=== PATIENT | female | born 1990 | race Caucasian/White ===

== ENCOUNTER 2018-02-16 09:35 | Inpatient (IN) ==
--- NOTE | 2018-02-16 10:26 | Emergency Department Note ---
Disposition Clinical Impression: Suicidal ideation, Hallucination Disposition: Admitted As Inpatient Condition: Good General Adult HPI - General Stated complaint: SI Time Seen by Provider: 02/16/18 10:23 - History of Present Illness HPI Narrative: Patient presents with suicidal ideation and auditory hallucinations. Voices tell her that they hate her, that the people in her house. Her, and that she should under life. She says that she currently does want to . Has a plan to overdose. Has had these feelings before and has attempted suicide in the past. She is a substance abuser who has been clean for the last 30 days, has used heroin, Suboxone and other drugs. No family history of suicide. Not currently employed. Denies any physical complaints of fever, nausea, pain or any other medical issue. Patient presents during a mask T event, being treated in the triage area at this point is whether receiving somewhere between 40 and 100 patients from a [facility]. There is a sitter in the room with her. [place] slip has been signed. - Related Data Home Medications Medication Instructions Recorded Confirmed Aripiprazole [Abilify] 5 mg PO DAILY 02/17/18 02/17/18 Cholecalciferol (D-3) [Vitamin D] 1,000 unit PO DAILY 02/17/18 02/17/18 HydrOXYzine Pamoate [Vistaril] 50 - 100 mg PO HS PRN 02/17/18 02/17/18 Previous Rx's Medication Instructions Recorded Mirtazapine [Remeron] 15 mg PO HS tablet 02/19/18 lamoTRIgine [Lamictal] 25 mg PO BID #60 tablet 02/19/18 risperiDONE [RisperDAL] 1 mg PO BID #60 tablet 02/19/18 traZODone [TraZODone] 100 mg PO HS tablet 02/19/18 Allergies Allergy/AdvReac Type Severity Reaction Status Date / Time methylergonovine Allergy Seizure Verified 12/08/17 15:18 [From Methergine] All systems ED: reviewed and negative except as stated. 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 General: Well-developed, well-nourished patient sitting up in bed who appears non-toxic. Head: Atraumatic, normocephalic. Eyes: Sclera anicteric. ENT: Mucous membranes moist. Respiratory: Normal respiratory pattern without respiratory distress. Skin: Warm and dry, no appreciable rash. Neurological: Awake and alert with normal speech, gait and mental status. No focal deficits or lateralizing signs. Psychiatric: Makes good eye contact, answers questions appropriately. Seems calm. Course Vital Signs Temperature 97.8 F 02/16/18 11:48 Pulse Rate 82 02/16/18 11:48 Respiratory Rate 18 02/16/18 11:48 Blood Pressure 115/83 02/16/18 11:48 O2 Sat by Pulse Oximetry 99 02/16/18 11:48 Temperature 98.1 F 02/19/18 09:00 Pulse Rate 81 02/19/18 09:00 Respiratory Rate 16 02/19/18 09:00 Blood Pressure 105/71 02/19/18 09:00 O2 Sat by Pulse Oximetry 97 02/16/18 22:29 Oxygen Delivery Oxygen Delivery Room Air Medical Decision Making - MDM Narrative Medical decision making narrative: [place] slip has been signed. Patient will require inpatient psychiatric admission. Patient checked out to Dr. Buffy Hui at change shift with evaluation by the psychiatric team pending. - Lab Data Result diagrams: 02/16/18 11:42 02/16/18 11:42 Lab Results 02/16/18 02/16/18 02/16/18 Range/Units 11:21 11:21 11:42 WBC 6.1 (4.3-11.1) K/mcL RBC 4.19 (3.82-4.97) M/mcL Hgb 13.0 (11.5-15.4) g/dL Hct 38.6 (35.3-44.9) % MCV 92.1 (83.0-100.0) fL MCH 31.0 (28.0-33.3) pg MCHC 33.7 (31.6-35.5) g/dL RDW 13.1 (11.5-14.5) % Plt Count 214 (140-400) K/mcL MPV 9.9 (9.4-12.4) fL Immature Gran % 0.3 (0-4) % Seg Neutrophils % 58.7 % Lymphocytes % 29.7 % Monocytes % 8.8 % Eosinophils % 1.5 % Basophils % 1.0 % Neutrophils # 3.6 (1.6-8.9) K/mcL Lymphocytes # 1.8 (0.6-4.6) K/mcL Monocytes # 0.5 (0.0-1.3) K/mcL Eosinophils # 0.1 (0.0-0.6) K/mcL Basophils # 0.1 (0.0-0.2) K/mcL Sodium (136-145) mEq/L Potassium (3.5-5.1) mEq/L Chloride (98-107) mEq/L Carbon Dioxide (23-29) mEq/L BUN (6-20) mg/dL Creatinine (0.60-1.20) mg/dL Est GFR ( Amer) (> 60) Est GFR (Non-Af Amer) (> 60) BUN/Creatinine Ratio (6-26) Glucose (70-105) mg/dL Calculated Osmolality (280-300) Calcium (8.6-10.3) mg/dL Serum , Qual (Negative) Urine Color Yellow (Yellow) Urine Clarity Clear (Clear) Urine pH 6.5 (5.0-8.0) pH Units Ur Specific [place] 1.021 (1.010-1.025) Urine Protein Negative (Neg-Trace) mg/dL Urine Glucose (UA) Normal (Normal) mg/dL Urine Ketones Negative (Negative) mg/dL Urine Blood Negative (Negative) Urine Nitrite Negative (Negative) Urine Bilirubin Negative (Negative) Urine Urobilinogen Normal (Normal) mg/dL Ur Leukocyte Esterase Negative (Negative) Salicylates (15.0-30.0) mg/dL Urine Opiates Screen Negative (Qfbukr=758) ng/mL Acetaminophen (10-20) mcg/mL Ur Barbiturates Screen Negative (Uepioh=888) ng/mL Ur Phencyclidine Scrn Negative (Cutoff=25) ng/mL Ur Amphetamines Screen Negative (Nnagqr=3647) ng/mL U Benzodiazepines Scrn Negative (Omyebl=173) ng/mL Urine Cocaine Screen Negative (Cutoff= 300) ng/mL U Marijuana (THC) Screen Negative (Cutoff = 50) ng/mL Ur Drug Screen Interp See Below Ethyl Alcohol (Less than 10) mg/dL 02/16/18 02/16/18 Range/Units 11:42 11:42 WBC (4.3-11.1) K/mcL RBC (3.82-4.97) M/mcL Hgb (11.5-15.4) g/dL Hct (35.3-44.9) % MCV (83.0-100.0) fL MCH (28.0-33.3) pg MCHC (31.6-35.5) g/dL RDW (11.5-14.5) % Plt Count (140-400) K/mcL MPV (9.4-12.4) fL Immature Gran % (0-4) % Seg Neutrophils % % Lymphocytes % % Monocytes % % Eosinophils % % Basophils % % Neutrophils # (1.6-8.9) K/mcL Lymphocytes # (0.6-4.6) K/mcL Monocytes # (0.0-1.3) K/mcL Eosinophils # (0.0-0.6) K/mcL Basophils # (0.0-0.2) K/mcL Sodium 140 (136-145) mEq/L Potassium 4.5 (3.5-5.1) mEq/L Chloride 107 (98-107) mEq/L Carbon Dioxide 28 (23-29) mEq/L BUN 14 (6-20) mg/dL Creatinine 0.86 (0.60-1.20) mg/dL Est GFR ( Amer) > 60 (> 60) Est GFR (Non-Af Amer) > 60 (> 60) BUN/Creatinine Ratio 16 (6-26) Glucose 92 (70-105) mg/dL Calculated Osmolality 290 (280-300) Calcium 9.3 (8.6-10.3) mg/dL Serum , Qual Negative (Negative) Urine Color (Yellow) Urine Clarity (Clear) Urine pH (5.0-8.0) pH Units Ur Specific [place] (1.010-1.025) Urine Protein (Neg-Trace) mg/dL Urine Glucose (UA) (Normal) mg/dL Urine Ketones (Negative) mg/dL Urine Blood (Negative) Urine Nitrite (Negative) Urine Bilirubin (Negative) Urine Urobilinogen (Normal) mg/dL Ur Leukocyte Esterase (Negative) Salicylates < 2.5 L (15.0-30.0) mg/dL Urine Opiates Screen (Nfqqrv=573) ng/mL Acetaminophen < 10 L (10-20) mcg/mL Ur Barbiturates Screen (Ilrzwa=158) ng/mL Ur Phencyclidine Scrn (Cutoff=25) ng/mL Ur Amphetamines Screen (Ksqfyd=6886) ng/mL U Benzodiazepines Scrn (Pcujpk=944) ng/mL Urine Cocaine Screen (Cutoff= 300) ng/mL U Marijuana (THC) Screen (Cutoff = 50) ng/mL Ur Drug Screen Interp Ethyl Alcohol 12 H (Less than 10) mg/dL
[2018-02-16 11:25] LABS: Bilirubin,Urine Negative (Negative); Blood,Urine Negative (Negative); Clarity,Urine Clear (Clear); Color,Urine Yellow (Yellow); Glucose,Urine (UA) Normal (Normal); Ketones,Urine Negative (Negative); Leukocyte Esterase,Urine Negative (Negative); Nitrite,Urine Negative (Negative); PH,Urine 6.5 pH Units (5.0-8.0); Protein,Urine Negative (Neg-Trace); Specific Gravity,Urine 1.021 (1.010-1.025); Urobilinogen,Urine Normal (Normal)
[2018-02-16 11:29] LABS: Amphetamine Screen,Urine Negative ng/mL (Cutoff=1000); Barbiturate Screen,Urine Negative ng/mL (Cutoff=200)
[2018-02-16 11:30] LABS: Benzodiazepines Screen,Urine Negative ng/mL (Cutoff=300); Cannabinoid Screen,Urine Negative ng/mL (Cutoff = 50); Cocaine Screen,Urine Negative ng/mL (Cutoff= 300); Opiate Screen,Urine Negative ng/mL (Cutoff=300); Phencyclidine Screen,Urine Negative ng/mL (Cutoff=25)
[2018-02-16 12:13] LABS: Basophils # 0.1 K/mcL (0.0-0.2); Eosinophils # 0.1 K/mcL (0.0-0.6); Eosinophils % 1.5 %; Hematocrit 38.6 % (35.3-44.9); Immature Granulocytes % 0.3 % (0-4); Lymphocytes # 1.8 K/mcL (0.6-4.6); Lymphocytes % 29.7 %; Mean Corpuscular HGB Conc 33.7 g/dL (31.6-35.5); Mean Corpuscular Volume 92.1 fL (83.0-100.0); Mean Platelet Volume 9.9 fL (9.4-12.4); Monocytes # 0.5 K/mcL (0.0-1.3); Monocytes % 8.8 %; Neutrophils # 3.6 K/mcL (1.6-8.9); Platelet Count 214 K/mcL (140-400); Red Blood Count 4.19 M/mcL (3.82-4.97); Red Cell Distribution Width 13.1 % (11.5-14.5); Segmented Neutrophils % 58.7 %
[2018-02-16 12:22] LABS: Acetaminophen < 10 mcg/mL (10-20); BUN/Creatinine Ratio 16 (6-26); Blood Urea Nitrogen 14 mg/dL (6-20); Calcium 9.3 mg/dL (8.6-10.3); Carbon Dioxide 28 mEq/L (23-29); Chloride 107 mEq/L (98-107); Ethanol 12 mg/dL (Less than 10); Glucose 92 mg/dL (70-105); Osmolality,Calculated 290 (280-300); Potassium 4.5 mEq/L (3.5-5.1); Salicylate < 2.5 mg/dL (15.0-30.0); Sodium 140 mEq/L (136-145); eGFR For Non-African Americans > 60 (> 60)
--- NOTE | 2018-02-16 13:54 | Emergency Department Note ---
Disposition Clinical Impression: Suicidal ideation Disposition: Still a Patient Referrals: NONE,PCP [Primary Care Provider] - General Adult HPI - General Chief complaint: ED Psychiatric Symptoms Stated complaint: SI Time Seen by Provider: 02/16/18 10:23 Source: patient, family Limitations: no limitations - History of Present Illness Pain Scale: 0 - Related Data Home Medications Medication Instructions Recorded Confirmed Trazodone HCl 100 mg PO HS 01/04/18 01/04/18 Previous Rx's Medication Instructions Recorded ARIPiprazole [Abilify] 10 mg PO DAILY #60 tablet 01/07/18 Mirtazapine [Remeron] 15 mg PO HS #30 tablet 01/07/18 Allergies Allergy/AdvReac Type Severity Reaction Status Date / Time methylergonovine Allergy Seizure Verified 12/08/17 15:18 [From Methergine] Past Medical History - Past Medical History Medical history: Reports: no medical history Psychiatric history: Reports: anxiety, bipolar, depression, prior suicide attempt, schizophrenia [employer]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 Akbar. This is a 27 year old female who has SI with plans to overdose. She has been medically cleared and the pysch hold has been placed and she is awaiting 1a evaluation Vital Signs Temperature 97.8 F 02/16/18 11:48 Pulse Rate 82 02/16/18 11:48 Respiratory Rate 18 02/16/18 11:48 Blood Pressure 115/83 02/16/18 11:48 O2 Sat by Pulse Oximetry 99 02/16/18 11:48 Temperature 97.8 F 02/16/18 11:48 Pulse Rate 82 02/16/18 11:48 Respiratory Rate 18 02/16/18 11:48 Blood Pressure 115/83 02/16/18 11:48 O2 Sat by Pulse Oximetry 99 02/16/18 11:48 Oxygen Delivery Oxygen Delivery Room Air Medical Decision Making - Lab Data Result diagrams: 02/16/18 11:42 02/16/18 11:42 Lab Results 02/16/18 02/16/18 02/16/18 Range/Units 11:21 11:21 11:42 WBC 6.1 (4.3-11.1) K/mcL RBC 4.19 (3.82-4.97) M/mcL Hgb 13.0 (11.5-15.4) g/dL Hct 38.6 (35.3-44.9) % MCV 92.1 (83.0-100.0) fL MCH 31.0 (28.0-33.3) pg MCHC 33.7 (31.6-35.5) g/dL RDW 13.1 (11.5-14.5) % Plt Count 214 (140-400) K/mcL MPV 9.9 (9.4-12.4) fL Immature Gran % 0.3 (0-4) % Seg Neutrophils % 58.7 % Lymphocytes % 29.7 % Monocytes % 8.8 % Eosinophils % 1.5 % Basophils % 1.0 % Neutrophils # 3.6 (1.6-8.9) K/mcL Lymphocytes # 1.8 (0.6-4.6) K/mcL Monocytes # 0.5 (0.0-1.3) K/mcL Eosinophils # 0.1 (0.0-0.6) K/mcL Basophils # 0.1 (0.0-0.2) K/mcL Sodium (136-145) mEq/L Potassium (3.5-5.1) mEq/L Chloride (98-107) mEq/L Carbon Dioxide (23-29) mEq/L BUN (6-20) mg/dL Creatinine (0.60-1.20) mg/dL Est GFR ( Amer) (> 60) Est GFR (Non-Af Amer) (> 60) BUN/Creatinine Ratio (6-26) Glucose (70-105) mg/dL Calculated Osmolality (280-300) Calcium (8.6-10.3) mg/dL Serum , Qual (Negative) Urine Color Yellow (Yellow) Urine Clarity Clear (Clear) Urine pH 6.5 (5.0-8.0) pH Units Ur Specific [place] 1.021 (1.010-1.025) Urine Protein Negative (Neg-Trace) mg/dL Urine Glucose (UA) Normal (Normal) mg/dL Urine Ketones Negative (Negative) mg/dL Urine Blood Negative (Negative) Urine Nitrite Negative (Negative) Urine Bilirubin Negative (Negative) Urine Urobilinogen Normal (Normal) mg/dL Ur Leukocyte Esterase Negative (Negative) Salicylates (15.0-30.0) mg/dL Urine Opiates Screen Negative (Ivekoz=044) ng/mL Acetaminophen (10-20) mcg/mL Ur Barbiturates Screen Negative (Xnobuv=371) ng/mL Ur Phencyclidine Scrn Negative (Cutoff=25) ng/mL Ur Amphetamines Screen Negative (Hwyefl=5469) ng/mL U Benzodiazepines Scrn Negative (Plicuj=281) ng/mL Urine Cocaine Screen Negative (Cutoff= 300) ng/mL U Marijuana (THC) Screen Negative (Cutoff = 50) ng/mL Ur Drug Screen Interp See Below Ethyl Alcohol (Less than 10) mg/dL 02/16/18 02/16/18 Range/Units 11:42 11:42 WBC (4.3-11.1) K/mcL RBC (3.82-4.97) M/mcL Hgb (11.5-15.4) g/dL Hct (35.3-44.9) % MCV (83.0-100.0) fL MCH (28.0-33.3) pg MCHC (31.6-35.5) g/dL RDW (11.5-14.5) % Plt Count (140-400) K/mcL MPV (9.4-12.4) fL Immature Gran % (0-4) % Seg Neutrophils % % Lymphocytes % % Monocytes % % Eosinophils % % Basophils % % Neutrophils # (1.6-8.9) K/mcL Lymphocytes # (0.6-4.6) K/mcL Monocytes # (0.0-1.3) K/mcL Eosinophils # (0.0-0.6) K/mcL Basophils # (0.0-0.2) K/mcL Sodium 140 (136-145) mEq/L Potassium 4.5 (3.5-5.1) mEq/L Chloride 107 (98-107) mEq/L Carbon Dioxide 28 (23-29) mEq/L BUN 14 (6-20) mg/dL Creatinine 0.86 (0.60-1.20) mg/dL Est GFR ( Amer) > 60 (> 60) Est GFR (Non-Af Amer) > 60 (> 60) BUN/Creatinine Ratio 16 (6-26) Glucose 92 (70-105) mg/dL Calculated Osmolality 290 (280-300) Calcium 9.3 (8.6-10.3) mg/dL Serum , Qual Negative (Negative) Urine Color (Yellow) Urine Clarity (Clear) Urine pH (5.0-8.0) pH Units Ur Specific [place] (1.010-1.025) Urine Protein (Neg-Trace) mg/dL Urine Glucose (UA) (Normal) mg/dL Urine Ketones (Negative) mg/dL Urine Blood (Negative) Urine Nitrite (Negative) Urine Bilirubin (Negative) Urine Urobilinogen (Normal) mg/dL Ur Leukocyte Esterase (Negative) Salicylates < 2.5 L (15.0-30.0) mg/dL Urine Opiates Screen (Awikjn=602) ng/mL Acetaminophen < 10 L (10-20) mcg/mL Ur Barbiturates Screen (Gzzyje=935) ng/mL Ur Phencyclidine Scrn (Cutoff=25) ng/mL Ur Amphetamines Screen (Cghyxe=3911) ng/mL U Benzodiazepines Scrn (Qblklv=957) ng/mL Urine Cocaine Screen (Cutoff= 300) ng/mL U Marijuana (THC) Screen (Cutoff = 50) ng/mL Ur Drug Screen Interp Ethyl Alcohol 12 H (Less than 10) mg/dL
--- NOTE | 2018-02-16 22:14 | Emergency Department Note ---
Disposition Clinical Impression: Suicidal ideation, Hallucination Disposition: Admitted As Inpatient Condition: Good Referrals: NONE,PCP [Primary Care Provider] - Forms: ED Satisfaction Letter Time of Disposition: 22:15 General Adult HPI - General Chief complaint: ED Psychiatric Symptoms Stated complaint: SI Time Seen by Provider: 02/16/18 10:23 Source: patient, family Limitations: no limitations - History of Present Illness Pain Scale: 0 - Related Data Home Medications Medication Instructions Recorded Confirmed Trazodone HCl 100 mg PO HS 01/04/18 01/04/18 Previous Rx's Medication Instructions Recorded ARIPiprazole [Abilify] 10 mg PO DAILY #60 tablet 01/07/18 Mirtazapine [Remeron] 15 mg PO HS #30 tablet 01/07/18 Allergies Allergy/AdvReac Type Severity Reaction Status Date / Time methylergonovine Allergy Seizure Verified 12/08/17 15:18 [From Methergine] Past Medical History - Past Medical History Medical history: Reports: no medical history Psychiatric history: Reports: anxiety, bipolar, depression, prior suicide attempt, schizophrenia 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 Buffy Hui. Patient presented with suicidal ideation and auditory hallucinations. She has been medically cleared for psychiatric and at shift change is awaiting evaluation by the [address] psychiatry service. Patient was seen and evaluated by the [address] psychiatry service and is being admitted to the [address] psychiatric unit. Application for emergency admission form completed and signed by me. Vital Signs Temperature 97.8 F 02/16/18 11:48 Pulse Rate 82 02/16/18 11:48 Respiratory Rate 18 02/16/18 11:48 Blood Pressure 115/83 02/16/18 11:48 O2 Sat by Pulse Oximetry 99 02/16/18 11:48 Temperature 97.8 F 02/16/18 11:48 Pulse Rate 82 02/16/18 11:48 Respiratory Rate 18 02/16/18 11:48 Blood Pressure 115/83 02/16/18 11:48 O2 Sat by Pulse Oximetry 99 02/16/18 11:48 Oxygen Delivery Oxygen Delivery Room Air Medical Decision Making - Lab Data Result diagrams: 02/16/18 11:42 02/16/18 11:42 Lab Results 02/16/18 02/16/18 02/16/18 Range/Units 11:21 11:21 11:42 WBC 6.1 (4.3-11.1) K/mcL RBC 4.19 (3.82-4.97) M/mcL Hgb 13.0 (11.5-15.4) g/dL Hct 38.6 (35.3-44.9) % MCV 92.1 (83.0-100.0) fL MCH 31.0 (28.0-33.3) pg MCHC 33.7 (31.6-35.5) g/dL RDW 13.1 (11.5-14.5) % Plt Count 214 (140-400) K/mcL MPV 9.9 (9.4-12.4) fL Immature Gran % 0.3 (0-4) % Seg Neutrophils % 58.7 % Lymphocytes % 29.7 % Monocytes % 8.8 % Eosinophils % 1.5 % Basophils % 1.0 % Neutrophils # 3.6 (1.6-8.9) K/mcL Lymphocytes # 1.8 (0.6-4.6) K/mcL Monocytes # 0.5 (0.0-1.3) K/mcL Eosinophils # 0.1 (0.0-0.6) K/mcL Basophils # 0.1 (0.0-0.2) K/mcL Sodium (136-145) mEq/L Potassium (3.5-5.1) mEq/L Chloride (98-107) mEq/L Carbon Dioxide (23-29) mEq/L BUN (6-20) mg/dL Creatinine (0.60-1.20) mg/dL Est GFR ( Amer) (> 60) Est GFR (Non-Af Amer) (> 60) BUN/Creatinine Ratio (6-26) Glucose (70-105) mg/dL Calculated Osmolality (280-300) Calcium (8.6-10.3) mg/dL Serum , Qual (Negative) Urine Color Yellow (Yellow) Urine Clarity Clear (Clear) Urine pH 6.5 (5.0-8.0) pH Units Ur Specific [place] 1.021 (1.010-1.025) Urine Protein Negative (Neg-Trace) mg/dL Urine Glucose (UA) Normal (Normal) mg/dL Urine Ketones Negative (Negative) mg/dL Urine Blood Negative (Negative) Urine Nitrite Negative (Negative) Urine Bilirubin Negative (Negative) Urine Urobilinogen Normal (Normal) mg/dL Ur Leukocyte Esterase Negative (Negative) Salicylates (15.0-30.0) mg/dL Urine Opiates Screen Negative (Lbfbui=653) ng/mL Acetaminophen (10-20) mcg/mL Ur Barbiturates Screen Negative (Lycpxa=094) ng/mL Ur Phencyclidine Scrn Negative (Cutoff=25) ng/mL Ur Amphetamines Screen Negative (Djgzar=4068) ng/mL U Benzodiazepines Scrn Negative (Chdfop=143) ng/mL Urine Cocaine Screen Negative (Cutoff= 300) ng/mL U Marijuana (THC) Screen Negative (Cutoff = 50) ng/mL Ur Drug Screen Interp See Below Ethyl Alcohol (Less than 10) mg/dL 02/16/18 02/16/18 Range/Units 11:42 11:42 WBC (4.3-11.1) K/mcL RBC (3.82-4.97) M/mcL Hgb (11.5-15.4) g/dL Hct (35.3-44.9) % MCV (83.0-100.0) fL MCH (28.0-33.3) pg MCHC (31.6-35.5) g/dL RDW (11.5-14.5) % Plt Count (140-400) K/mcL MPV (9.4-12.4) fL Immature Gran % (0-4) % Seg Neutrophils % % Lymphocytes % % Monocytes % % Eosinophils % % Basophils % % Neutrophils # (1.6-8.9) K/mcL Lymphocytes # (0.6-4.6) K/mcL Monocytes # (0.0-1.3) K/mcL Eosinophils # (0.0-0.6) K/mcL Basophils # (0.0-0.2) K/mcL Sodium 140 (136-145) mEq/L Potassium 4.5 (3.5-5.1) mEq/L Chloride 107 (98-107) mEq/L Carbon Dioxide 28 (23-29) mEq/L BUN 14 (6-20) mg/dL Creatinine 0.86 (0.60-1.20) mg/dL Est GFR ( Amer) > 60 (> 60) Est GFR (Non-Af Amer) > 60 (> 60) BUN/Creatinine Ratio 16 (6-26) Glucose 92 (70-105) mg/dL Calculated Osmolality 290 (280-300) Calcium 9.3 (8.6-10.3) mg/dL Serum , Qual Negative (Negative) Urine Color (Yellow) Urine Clarity (Clear) Urine pH (5.0-8.0) pH Units Ur Specific [place] (1.010-1.025) Urine Protein (Neg-Trace) mg/dL Urine Glucose (UA) (Normal) mg/dL Urine Ketones (Negative) mg/dL Urine Blood (Negative) Urine Nitrite (Negative) Urine Bilirubin (Negative) Urine Urobilinogen (Normal) mg/dL Ur Leukocyte Esterase (Negative) Salicylates < 2.5 L (15.0-30.0) mg/dL Urine Opiates Screen (Qqjjsx=096) ng/mL Acetaminophen < 10 L (10-20) mcg/mL Ur Barbiturates Screen (Izzjiy=165) ng/mL Ur Phencyclidine Scrn (Cutoff=25) ng/mL Ur Amphetamines Screen (Dyiihh=1316) ng/mL U Benzodiazepines Scrn (Egedtz=200) ng/mL Urine Cocaine Screen (Cutoff= 300) ng/mL U Marijuana (THC) Screen (Cutoff = 50) ng/mL Ur Drug Screen Interp Ethyl Alcohol 12 H (Less than 10) mg/dL
[2018-02-16] MEDS ORDERED: Acetaminophen 325 MG TABLET PO PRN (22:27)
[2018-02-16] MEDS ORDERED: *HR* LORazepam 1 MG TABLET PO PRN (22:27)
[2018-02-16] MEDS ORDERED: hydrOXYzine pamoate 25 MG CAPSULE PO PRN (22:27)
[2018-02-16] MEDS ORDERED: Haloperidol Lactate 5 MG/ML VIAL IM PRN (22:27)
[2018-02-16] MEDS ORDERED: MOM Conc 10 ML UD.LIQ PO PRN (22:27)
[2018-02-16] MEDS ORDERED: Mag Hydrox/Al Hydrox/Simeth 30 ML UDC PO PRN (22:27)
[2018-02-16] MEDS ORDERED: *HR* LORazepam 2 MG/ML VIAL IM PRN (22:27)
[2018-02-16] MEDS: Mirtazapine 15 MG TABLET PO SCH (23:31)
[2018-02-16] MEDS: traZODone 50 MG TABLET PO SCH (23:31)
[2018-02-17] MEDS ORDERED: ARIPiprazole 10 MG TABLET PO SCH (09:00)
--- NOTE | 2018-02-17 16:34 | Psychiatry History & Physical ---
Date of Encounter: 02/17/18 Time of Encounter: 16:00 History of Present Illness Patient Stated Chief Complaint: I was going to take an overdose Medicare Admission Attestation: For traditional Medicare patients the provided hospital inpatient services are reasonable and necessary and in the case of services not specified as inpatient -only under 42 CFR 419.22 (n), that they are appropriately provided as inpatient services in accordance 42 CFR 412.3. For Critical Access Hospital the patient may reasonably be expected to be discharged or transferred to a hospital within 96 hours after admission to the Critical Access Hospital. Admitted From: Hospital to Hospital Transfer Plans for Post Hospital Care: Home History of Present Illness: Ms. Carey is a 27 year old female The patient is a 27-year-old white female. She is living in [facility] previously resided in [facility] Chief complaint I do not know, I have been diagnosed with so many things I had some suicidal thinking with a plan to overdose. I hear voices 24 7. History of present illness. The patient's been previously hospitalized here previously was given a diagnosis of unspecified psychosis. The patient reports that she has been hearing voices since she was young but she is never sought treatment only never became a problem until age 26. These occurred after a period of substance abuse that will be described below. The patient reports that she hears the voices of her family and these are good she hears the voices of the women in her house and these are she hears the voice of her ex-boyfriend and her ex-boyfriend's family ex-boyfriend's Hanks is her ex-boyfriend's girlfriend and these are critical they call her ugly fat or junky. They sometimes argue with her family. When asked how this is possible she said that she could not explain it but that she hears them in her head. These are intense and loud at times and never seemed to stop the do not comment on her. She had been clean for 3 months yet the voices continued. She has thought broadcasting or thought insertion thought withdrawal no ideas of reference but has delusions of passive bitty. She has no kofi or unusual delusions. The patient's been hospitalized 3 times in psychiatric units. She felt that the medicines were not helpful. At age 19 she started using heroin. This after. Pain pills the patient has been on treatment 11 times from age [age] she has worked on this. The patient' s been off Suboxone for 4 months she never been on methadone she never been on vivid trauma. She never abused alcohol she uses marijuana every day since her teenage years she never abused benzodiazepines but did abuse meth and efforts to get her off meth were not always successful. The patient reports no seizures. Past medical history. Surgery includes a D&C at age 18 she is with 2 miscarriages. Her son is now 5 years old lives with the grandmother. Patient as not practicing control but uses abstinence and barrier methods needed. Illnesses hepatitis C allergie. Or a medicine used for D&C she contracted throughout the whole body. The patient's been on Abilify Remeron and hydroxyzine Family history father with alcohol problems cleaned up and is now on Klonopin. And Lexapro. The mother had an alcohol pain pill problem and now has bipolar disorder and has used meth and has had problems with voices. Paternal cousin hung himself. Paternal grandmother by suicide Social history. The patient completed [employer] she graduated high school she attended the [employer] she got high and had trouble about. The patient worked for 4 years at a [employer] but she last worked at age 24. Her grandmother lives in [place]. The patient had to get a restraining order against the baby Mckayla but this is now. The patient has had no problems in a correctional facilities. The patient is reported in her abuse systems decreased interest worries about her health decreased energy ups and downs and weight suicidal ideation distractibility decreased need for sleep grandiosity flight of ideas excessive activities thoughtlessness no homicidal ideation. Her history is otherwise negative in the review of systems Past Med Surg Social Fam HX - Past Medical History Medical history: no medical history, hepatitis - Past Psychiatric History Psychiatric history: Reports: previous psychiatric hospitalization Family psychiatric history: Yes Family History of Suicide: Completed - Past Surgical History Surgical History: other - Social History Smoking Status: Current every day smoker Smokeless Tobacco Status: No Alcohol use: none Drug use: none Occupational status: previously employed Current living situation: [place], Other Activity Level: Independent ambulation Recent Out of Country Travel Within the Last 8 Weeks: No Exposure or Possible Exposure to Illness During Travel: No Medications & Allergies Acetaminophen [Tylenol] 500 - 1,000 mg PO Q6HR PRN 02/17/18 [History] Aripiprazole [Abilify] 5 mg PO DAILY 02/17/18 [History] Cholecalciferol (D-3) [Vitamin D] 1,000 unit PO DAILY 02/17/18 [History] HydrOXYzine Pamoate [Vistaril] 50 - 100 mg PO HS PRN 02/17/18 [History] 3 Allergy/AdvReac Type Severity Reaction Status Date / Time methylergonovine Allergy Seizure Verified 12/08/17 15:18 [From Methergine] Review of Systems Constitutional: Denies: fever, chills, weakness, weight change Eyes: Denies: eye pain, vision change Ears, Nose, Throat: Denies: ear pain, throat pain, dental pain, hearing loss, congestion Cardiovascular: Denies: chest pain, palpitations, dyspnea on exertion Respiratory: Denies: cough, dyspnea, wheezes Gastrointestinal: Denies: abdominal pain, nausea, vomiting, diarrhea, constipation Genitourinary female: Denies: urgency, dysuria, frequency, abnormal menses, dyspareunia Musculoskeletal: Denies: joint swelling, joint pain Integumentary: Denies: rash, lesions, pruritus Neurological: Denies: headache, weakness, numbness, memory loss Psychiatric: Reports: abnormal sleep pattern, suicidal ideation, anhedonia, difficulty concentrating Endocrine: Denies: fatigue, heat or cold intolerance Hematologic/Lymphatic: Denies: easy bruising, lymphadenopathy Allergic/Immunologic: Denies: urticaria, itchy eyes Exam - HEENT Head exam IM: Present: atraumatic Eye exam IM: Present: EOMI, normal appearance, PERRL ENT exam IM: Present: normal exam - Neurological Neurological exam: Present: CN II-XII intact - Respiratory Respiratory exam IM: Present: CTAB - GI/Abdominal GI/Abdominal exam IM: Present: normal bowel sounds, soft. Absent: tenderness - Extremities Extremities exam IM: Present: full ROM - Skin Skin exam IM: Present: dry, warm - Constitutional Vitals: Temp Pulse Resp BP Pulse Ox 98 F 72 16 96/67 97 02/17/18 09:00 02/17/18 09:00 02/17/18 09:00 02/17/18 09:00 02/16/18 22:29 General appearance: age & developmentally appropriate, well-groomed, well- nourished - Musculoskeletal Gait: normal Station: relaxed Strength & Tone: normal for patient - Psychiatric Patient Orientation: Yes Person, Yes Time, Yes Place Level of alertness: Alert Behavior: calm, cooperative Psychomotor activity: Normal Eye Contact: Maintains Eye Contact Mood Description: Depressed Affect description: congruent with mood, full range, dysphoric Speech Volume: Normal Speech pattern: normal rate, normal rhythm, normal tone, fluent, spontaneous Language & Vocabulary: consistent with education Thought Process: Linear, Goal Oriented Thought Content: Yes Suicidal ideation, No Homicidal ideation, No Overt delusions, Yes Thought broadcasting, Yes Thought insertion Perceptual Disturbances: No Auditory hallucinations, No Visual hallucinations Attention Span Ability: Capable of Focused Attention Memory Description: Grossly Intact Patient Reliability: Reliable Historian Fund of knowledge: Yes abstraction ability, Yes average, Yes aware of current events Intelligence Estimate: Average Judgment: Limited Insight: Minimal Results - Labs Labs: Laboratory Last Values WBC 6.1 K/mcL (4.3-11.1) 02/16/18 11:42 RBC 4.19 M/mcL (3.82-4.97) 02/16/18 11:42 Hgb 13.0 g/dL (11.5-15.4) 02/16/18 11:42 Hct 38.6 % (35.3-44.9) 02/16/18 11:42 MCV 92.1 fL (83.0-100.0) 02/16/18 11:42 MCH 31.0 pg (28.0-33.3) 02/16/18 11:42 MCHC 33.7 g/dL (31.6-35.5) 02/16/18 11:42 RDW 13.1 % (11.5-14.5) 02/16/18 11:42 Plt Count 214 K/mcL (140-400) 02/16/18 11:42 MPV 9.9 fL (9.4-12.4) 02/16/18 11:42 Immature Gran % 0.3 % (0-4) 02/16/18 11:42 Seg Neutrophils % 58.7 % 02/16/18 11:42 Lymphocytes % 29.7 % 02/16/18 11:42 Monocytes % 8.8 % 02/16/18 11:42 Eosinophils % 1.5 % 02/16/18 11:42 Basophils % 1.0 % 02/16/18 11:42 Neutrophils # 3.6 K/mcL (1.6-8.9) 02/16/18 11:42 Lymphocytes # 1.8 K/mcL (0.6-4.6) 02/16/18 11:42 Monocytes # 0.5 K/mcL (0.0-1.3) 02/16/18 11:42 Eosinophils # 0.1 K/mcL (0.0-0.6) 02/16/18 11:42 Basophils # 0.1 K/mcL (0.0-0.2) 02/16/18 11:42 Sodium 140 mEq/L (136-145) 02/16/18 11:42 Potassium 4.5 mEq/L (3.5-5.1) 02/16/18 11:42 Chloride 107 mEq/L (98-107) 02/16/18 11:42 Carbon Dioxide 28 mEq/L (23-29) 02/16/18 11:42 BUN 14 mg/dL (6-20) 02/16/18 11:42 Creatinine 0.86 mg/dL (0.60-1.20) 02/16/18 11:42 Est GFR ( Amer) > 60 (> 60) 02/16/18 11:42 Est GFR (Non-Af Amer) > 60 (> 60) 02/16/18 11:42 BUN/Creatinine Ratio 16 (6-26) 02/16/18 11:42 Glucose 92 mg/dL (70-105) 02/16/18 11:42 Calculated Osmolality 290 (280-300) 02/16/18 11:42 Calcium 9.3 mg/dL (8.6-10.3) 02/16/18 11:42 Serum , Qual Negative (Negative) 02/16/18 11:42 Urine Color Yellow (Yellow) 02/16/18 11:21 Urine Clarity Clear (Clear) 02/16/18 11:21 Urine pH 6.5 pH Units (5.0-8.0) 02/16/18 11:21 Ur Specific [place] 1.021 (1.010-1.025) 02/16/18 11:21 Urine Protein Negative mg/dL (Neg-Trace) 02/16/18 11:21 Urine Glucose (UA) Normal mg/dL (Normal) 02/16/18 11:21 Urine Ketones Negative mg/dL (Negative) 02/16/18 11:21 Urine Blood Negative (Negative) 02/16/18 11:21 Urine Nitrite Negative (Negative) 02/16/18 11:21 Urine Bilirubin Negative (Negative) 02/16/18 11:21 Urine Urobilinogen Normal mg/dL (Normal) 02/16/18 11:21 Ur Leukocyte Esterase Negative (Negative) 02/16/18 11:21 Salicylates < 2.5 mg/dL (15.0-30.0) L 02/16/18 11:42 Urine Opiates Screen Negative ng/mL (Laepkv=075) 02/16/18 11:21 Acetaminophen < 10 mcg/mL (10-20) L 02/16/18 11:42 Ur Barbiturates Screen Negative ng/mL (Mtthpd=631) 02/16/18 11:21 Ur Phencyclidine Scrn Negative ng/mL (Cutoff=25) 02/16/18 11:21 Ur Amphetamines Screen Negative ng/mL (Dpozqe=7292) 02/16/18 11:21 U Benzodiazepines Scrn Negative ng/mL (Hpuudf=301) 02/16/18 11:21 Urine Cocaine Screen Negative ng/mL (Cutoff= 300) 02/16/18 11:21 U Marijuana (THC) Screen Negative ng/mL (Cutoff = 50) 02/16/18 11:21 Ur Drug Screen Interp See Below 02/16/18 11:21 Ethyl Alcohol 12 mg/dL (Less than 10) H 02/16/18 11:42 Assessment and Plan (1) Schizophreniform disorder Current visit: Yes Status: Acute Plan: Admit inpatient for safety and stabilization, Close observation Risks, benefits, side effects, alternatives discussed w/pt: Yes Patient agreeable to treatment: Yes Plans for Post Hospital Care: Home Estimated Length of Stay ( Days): 7 (2) 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 Current visit: Yes Status: Acute Plan: Admit inpatient for safety and stabilization Risks, benefits, side effects, alternatives discussed w/pt: Yes Patient agreeable to treatment: Yes Plans for Post Hospital Care: Home (3) 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 Current visit: Yes Status: Chronic Plan: Encourage participation in unit milieu, Secure weapons Risks, benefits, side effects, alternatives discussed w/pt: Yes Patient agreeable to treatment : Yes Plans for Post Hospital Care: Home (4) 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
[2018-02-17] MEDS ORDERED: hydrOXYzine pamoate 25 MG CAPSULE PO PRN (16:41)
[2018-02-17] MEDS ORDERED: lamoTRIgine 25 MG TABLET PO SCH (21:00)
[2018-02-17] MEDS: Mirtazapine 15 MG TABLET PO SCH (21:13)
[2018-02-17] MEDS: traZODone 50 MG TABLET PO SCH (21:13)
--- NOTE | 2018-02-18 15:18 | Psychiatry Progress Note ---
Date of Encounter: 02/18/18 Time of Encounter: 15:15 Subjective Interval history: ID patient is a 27-year-old white female Chief complaint Chacorta the patient says when will I feel better. History of present illness patient is been started on lamotrigine and is tolerated this. She will increase to 25 mg twice a day she is wished to remain on mirtazapine because she is concerned about depression. The patient continues to exhibit stereotyped rocking she continues to complain of voices she is not sure with they are real or not. The patient agreed to a trial of risperidone 1 mg twice a day will begin with 1 mg today patient I discussed the need for sobriety. Noted no side effects and she is aware of when her follow-up appointment is on an outpatient basis Review of Systems Psychiatric: Reports: abnormal sleep pattern, suicidal ideation, auditory hallucinations, anhedonia, difficulty concentrating Results - Vital Signs Vital Signs: Temp Pulse Resp BP Pulse Ox 98.7 F 75 18 113/68 97 02/18/18 09:00 02/18/18 09:00 02/18/18 09:00 02/18/18 09:00 02/16/18 22:29 Assessment and Plan (1) Schizophreniform disorder Current visit: Yes Status: Acute Plan: Continue hospitalization, Close observation, Suicide Precautions per unit protocol, Encourage participation in unit milieu, Secure weapons Risks, benefits, side effects, alternatives discussed w/pt: Yes Patient agreeable to treatment: Yes (2) 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 Current visit: Yes Status: Acute Plan: Close observation, Encourage participation in unit milieu, Monitor sleep, Monitor appetite, Secure weapons Risks, benefits, side effects, alternatives discussed w/pt: Yes Patient agreeable to treatment: Yes (3) 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 Current visit: Yes Status: Chronic Plan: Continue hospitalization, Group Therapy, Monitor sleep Risks, benefits, side effects, alternatives discussed w/pt: Yes Patient agreeable to treatment : Yes (4) 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 Please arrive 30 minutes early to complete paperwork. Please bring your insurance card, photo ID and medications in their original bottles. If you do not have insurance, bring proof of income to apply for the sliding fee scale. If you are unable to keep this appointment, 24 hour business notice of cancellation is expected. The above appointment(s) reflects first availability. You may contact the office regularly to check for cancellations that may allow you to be seen sooner.) [facility] [Outside] (You will return to [facility] discharge to resume residential substance abuse treatment services with in- house mental health counseling. [facility] is located at [address] [place] [address]. The phone number is [phone]. The fax number is [phone].) Psychiatry Exam - Constitutional Vitals: Temp Pulse Resp BP Pulse Ox 98.7 F 75 18 113/68 97 02/18/18 09:00 02/18/18 09:00 02/18/18 09:00 02/18/18 09:00 02/16/18 22:29 General appearance: age & developmentally appropriate, well-groomed, well- nourished - Musculoskeletal Gait: normal, other Station: relaxed Strength & Tone: normal for patient - Psychiatric Patient Orientation: Yes Person, Yes Time, Yes Place Level of alertness: Alert Behavior: calm, cooperative Psychomotor activity: Normal Eye Contact: Maintains Eye Contact Affect description: congruent with mood, constricted Speech Volume: Normal Speech pattern: normal rate, normal rhythm, normal tone, fluent, spontaneous Language & Vocabulary: consistent with education Thought Process: Linear, Goal Oriented Thought Content: Yes Suicidal ideation, No Homicidal ideation, No Overt delusions, Yes Thought broadcasting, Yes Thought insertion Perceptual Disturbances: Yes Auditory hallucinations, No Visual hallucinations Attention Span Ability: Capable of Focused Attention Memory Description: Grossly Intact Patient Reliability: Reliable Historian Fund of knowledge: Yes abstraction ability, Yes aware of current events Intelligence Estimate: Average Judgment: Fair Insight: Partial
[2018-02-18] MEDS: traZODone 50 MG TABLET PO SCH (20:30)
[2018-02-18] MEDS: risperiDONE 1 MG TABLET PO SCH (20:30)
[2018-02-18] MEDS: lamoTRIgine 25 MG TABLET PO SCH (20:30)
[2018-02-18] MEDS: Mirtazapine 15 MG TABLET PO SCH (20:30)
[2018-02-19] MEDS: risperiDONE 1 MG TABLET PO SCH (09:00)
[2018-02-19] MEDS: lamoTRIgine 25 MG TABLET PO SCH (09:00)
[2018-02-19 09:16] VITALS: BP 105/71
--- NOTE | 2018-02-19 11:17 | Discharge Summary ---
Date of Encounter: 02/19/18 Time of Encounter: 11:13 Diagnosis - Discharge Diagnosis (1) Schizophreniform disorder Status: Acute Medications - Discharge Medications Prescriptions: lamoTRIgine [Lamictal] 25 mg PO BID #60 tablet risperiDONE [RisperDAL] 1 mg PO BID #60 tablet Aripiprazole [Abilify] 5 mg PO DAILY 02/17/18 [History] Cholecalciferol (D-3) [Vitamin D] 1,000 unit PO DAILY 02/17/18 [History] HydrOXYzine Pamoate [Vistaril] 50 - 100 mg PO HS PRN 02/17/18 [History] Mirtazapine [Remeron] 15 mg PO HS tablet 02/19/18 [Rx] lamoTRIgine [Lamictal] 25 mg PO BID #60 tablet 02/19/18 [Rx] risperiDONE [RisperDAL] 1 mg PO BID #60 tablet 02/19/18 [Rx] traZODone [TraZODone] 100 mg PO HS tablet 02/19/18 [Rx] 3 Allergy/AdvReac Type Severity Reaction Status Date / Time methylergonovine Allergy Seizure Verified 12/08/17 15:18 [From Methergine] Provider Date of admission: 02/16/18 22:22 Primary care physician: PCP NONE Discharging clinician: Melvina Spicer Psychiatry Exam - Constitutional Vitals: Temp Pulse Resp BP Pulse Ox 98.1 F 81 16 105/71 97 02/19/18 09:00 02/19/18 09:00 02/19/18 09:00 02/19/18 09:00 02/16/18 22:29 General appearance: age & developmentally appropriate, well-groomed, well- nourished - Musculoskeletal Gait: normal Station: relaxed Strength & Tone: normal for patient - Psychiatric Patient Orientation: Yes Person, Yes Time, Yes Place Level of alertness: Alert Behavior: calm, cooperative Psychomotor activity: Normal Eye Contact: Maintains Eye Contact Mood Description: Euthymic/stable Affect description: congruent with mood, full range Speech Volume: Normal Speech pattern: normal rate, normal rhythm, normal tone, fluent, spontaneous Language & Vocabulary: consistent with education Thought Process: Linear, Goal Oriented Thought Content: No Suicidal ideation, No Homicidal ideation, No Overt delusions Perceptual Disturbances: No Auditory hallucinations, No Visual hallucinations Attention Span Ability: Capable of Focused Attention Memory Description: Grossly Intact Patient Reliability: Reliable Historian Fund of knowledge: Yes abstraction ability, Yes aware of current events Intelligence Estimate: Average Judgment: Fair Insight: Partial Hospital Course Hospital course: Ms. Carey is a 27 year old female who was admitted secondary to AH. Living in a residential AOD treatment facility and felt the urge to leave and use. Drugs of choice include heroin, Suboxone, and crystal meth. Elected to come to hospital instead of using. Has been clean approx three months. Rehab agreed to hold her bed. Client never appeared psychotic in hospital. Started on Lamictal and Risperdal with positive results. Today client denies AH. Denies depression. Denies SI/HI. Wants to return to rehab. Feels program is working for her. Called facility and they can pick her up later today. Bright and reactive on unit. Future oriented. Feels safe for discharge. - Time Spent with Patient Total time spent providing and/or coordinating discharge services: Assessment and Plan - Patient/Caregiver Discharge Instructions Activity: resume usual activities as tolerated Diet: regular diet - Follow up Plan Follow up with: [facility] [Outside] - 02/24/18 11:00 am (The above appointment is with Ynes Hoffman for outpatient psychiatric assessment and medication management services. Please arrive 30 minutes early to complete paperwork. Please bring your insurance card, photo ID and medications in their original bottles. If you do not have insurance, bring proof of income to apply for the sliding fee scale. If you are unable to keep this appointment, 24 hour business notice of cancellation is expected. The above appointment(s) reflects first availability. You may contact the office regularly to check for cancellations that may allow you to be seen sooner.) [facility] [Outside] (You will return to [facility] on discharge to resume residential substance abuse treatment services with in- house mental health counseling. [facility] is located at [address] [place] [address]. The phone number is [phone]. The fax number is [phone].) Functional capacity at discharge: independent ambulation Overall status at discharge: Stable Disposition: Home, Self-Care Quality - Multiple Antipsychotics Patient discharged on 2 or more antipsychotic medications: No Procedures - Procedures Procedures: Medication Management, Crisis Stabilization, Supportive Therapy, Group Therapy
== END 2018-02-19 12:20 | disposition home or self-care (01) | DRG 750 ==
LOC: EMEROOARM 09:35 → 1ANU 22:22
PROVIDERS: ADMIT Psychiatry & Neurology Forensic Psychiatry; ATTEND Psychiatry & Neurology Forensic Psychiatry